=== PATIENT | female | born 1955 | race African-American/Black ===

== ENCOUNTER 2017-11-05 11:16 | Emergency (ER) | payer OTHER ==
[~2017-11-05] VITALS: Ht 170.1 cm; Wt 99.8 kg
[2017-11-05] MEDS ORDERED: NAPROSYN500 MG PO (12:55)
[2017-11-05] MEDS ORDERED: 'PARAFON FORTE500 M1 PO (12:55)
== END 2017-11-05 13:22 | disposition home or self-care (01) ==
LOC: ED 11:16
DX: S13.9XXA Sprain of joints and ligaments of unspecified parts of neck, initial encounter (principal); S40.012A Contusion of left shoulder, initial encounter; M54.5 Low back pain; V89.2XXA Person injured in unspecified motor-vehicle accident, traffic, initial encounter; Y93.89 Activity, other specified; Y92.413 State road as the place of occurrence of the external cause; Y99.8 Other external cause status

== ENCOUNTER → 2018-08-02 | Outpatient (CLI) | payer OTHER ==
[~2018-08-02] MED LIST: 'PARAFON FORTE500 M1 PO; NAPROSYN500 MG PO
[2018-08-02 08:59] LABS: BASO # 0.1 10*3/uL (0.0-0.1); EOS # 0.2 10*3/uL (0.0-0.4); EOS % 3.1 % (1.0-4.0); HEMATOCRIT 41.8 % (37.0-47.0); HEMOGLOBIN 13.7 g/dl (12.0-16.0); LYMPH # 1.9 10*3/uL (1.3-4.4); LYMPH % 33.1 % (27.0-41.0); MEAN CELL VOLUME 88.6 fl (81.0-99.0); MEAN CORPUSCULAR HGB CONC 32.8 g/dl (33.0-37.0); MEAN PLATELET VOLUME 10.7 fl (9.6-12.3); MONO # 0.5 10*3/uL (0.1-1.0); MONO % 8.1 % (3.0-9.0); NEUT # 3.2 10*3/uL (2.3-7.9); NEUT % 54.5 % (47.0-73.0); PLATELET COUNT AUTOMATED 189 10*3/uL (130-400); RED BLOOD COUNT 4.72 10*6/uL (4.10-5.10); RED CELL DISTRI WIDTH 14.5 % (0-14.5); WHITE BLOOD COUNT 5.8 10*3/uL (4.8-10.8)
[2018-08-02 09:28] LABS: BUN 12 mg/dl (7-24); CHLORIDE 108 mmol/L (98-107); CHOLESTEROL 155 mg/dL (<200); CREATININE 0.78 mg/dL (0.55-1.02); HDL CHOLESTEROL 48 mg/dl (40-60); LDL CHOLESTEROL 87 mg/dL (9-159); POTASSIUM 3.6 mmol/L (3.5-5.1); SODIUM 143 mmol/L (136-145); TRIGLYCERIDES 99 mg/dl (<150); VLDL CHOLESTEROL 20 mg/dL (6-40)
== END | disposition home or self-care (01) ==
LOC: LAB 08:33
PROVIDERS: Internal Medicine Cardiovascular Disease
DX: I10 Essential (primary) hypertension (principal)

== ENCOUNTER → 2018-09-24 | Outpatient (CLI) | payer OTHER | END | disposition home or self-care (01) | LOC: CARD 01:59 | DX: I10 Essential (primary) hypertension (principal); I07.1 Rheumatic tricuspid insufficiency; R06.02 Shortness of breath ==

== ENCOUNTER → 2019-01-11 | Outpatient (CLI) | payer OTHER | END | disposition home or self-care (01) | LOC: CANPRECLI → RESCLI 02:08 | DX: I10 Essential (primary) hypertension (principal); R00.1 Bradycardia, unspecified; E66.09 Other obesity due to excess calories; Z68.35 Body mass index [BMI] 35.0-35.9, adult; Z76.89 Persons encountering health services in other specified circumstances; Z79.899 Other long term (current) drug therapy ==

== ENCOUNTER → 2022-04-14 | Outpatient (CLI) | payer OTHER | LOC: MAMMO 08:30 | PROVIDERS: ATTEND Internal Medicine | DX: Z12.31 Encounter for screening mammogram for malignant neoplasm of breast (principal) ==

== ENCOUNTER → 2022-10-02 | Outpatient (CLI) | payer OTHER | END | disposition home or self-care (01) | LOC: MRI 13:31 | PROVIDERS: ATTEND Internal Medicine | DX: M51.17 Intervertebral disc disorders with radiculopathy, lumbosacral region (principal); M51.16 Intervertebral disc disorders with radiculopathy, lumbar region; M48.062 Spinal stenosis, lumbar region with neurogenic claudication; M48.07 Spinal stenosis, lumbosacral region; M47.816 Spondylosis without myelopathy or radiculopathy, lumbar region ==

== ENCOUNTER → 2023-01-02 | Outpatient (CLI) | payer OTHER | END | disposition home or self-care (01) | LOC: RAD 09:24 | PROVIDERS: ATTEND Chiropractor | DX: M48.02 Spinal stenosis, cervical region (principal); M25.78 Osteophyte, vertebrae; M54.2 Cervicalgia; M25.511 Pain in right shoulder ==